=== PATIENT | female | born 1995 | race American Indian/Alaskan Native ===

== ENCOUNTER 2020-03-10 03:56 | Inpatient (IN) | payer MEDICAID ==
[2020-03-10] MEDS ORDERED: AMPICILLIN/NS 2 GM/100 ML 2 GM/100 ML BAG IV ONE (04:03)
[2020-03-10] MEDS ORDERED: fentaNYL 100 MCG/2 ML INJ IV PRN (04:03)
[2020-03-10] MEDS ORDERED: LIDOCAINE (2%) 20 MG/1 ML VIAL 20 ML MDV INFILTRATI ONE (04:03)
[2020-03-10] MEDS ORDERED: TERBUTALINE 1 MG/1 ML INJ SUB-Q PRN (04:03)
[2020-03-10] MEDS ORDERED: ePHEDrine SULFATE 50 MG/1 ML INJ IV PRN (04:03)
[2020-03-10] MEDS ORDERED: ACETAMINOPHEN 325 MG TAB PO PRN (04:03)
[2020-03-10] MEDS ORDERED: fentaNYL 100 MCG/2 ML INJ ONE (04:12)
--- NOTE | 2020-03-10 04:21 | History and Physical Report ---
History of Present Illness Date of examination: 03/10/20 Date of admission: 03/10/2020 Chief complaint: Contractions History of present illness: 24 year old presents with complaint of contractions. Patient reports possible leaking of fluid; denies vaginal bleeding. Patient reports active movement. Patient received care at [facility]. records are not available but was able to access some records via computer. LMP 06/09/19. EDC 03/02/2020. significant for the following: anemia (supplemented with iron), chl amydia (treated and cured), obesity/elevated hemoglobin A1C. labs are as follows: A+, antibody screen negative, rubella immune, hepatitis B surface antigen negative, RPR nonreactive, HIV negative, varicella immune, sickle cell negative, gonorrhea negative, chlamydia positive (JOSEPH negative), 1 hour sugar test 111, GBS positive, trichomonos negative. Past History Past Medical History: other (obesity) Past Surgical History: no surgical history [employer] History: chlamydia (treated and cured during ). denies: cancer, gonorrhea, hepatitis B, hepatitis C, herpes, HIV, syphilis, trichomonas Family/Genetic History: none Social history: lives with family, full code. denies: smoking, alcohol abuse, prescription drug abuse, IV drug use - Obstetrical History Expected Date of Delivery: 03/02/20 Actual Gestation: 41 Week(s) 1 Day(s) : 6 Para: 3 Hx # Term Pregnancies: 3 Number of Pregnancies: 0 Spontaneous Abortions: 0 Induced : 0 Number of Living Children: 3 Medications and Allergies Allergies Allergy/AdvReac Type Severity Reaction Status Date / Time No Known Allergies Allergy Verified 03/10/20 04:12 Home Medications Medication Instructions Recorded Confirmed Last Taken Type No Known Home Medications [No 03/10/20 03/10/20 Unknown History Reported Home Medications] Active Meds: Active Medications Acetaminophen (Tylenol) 650 mg PO Q4H PRN PRN Reason: Pain, Mild (1-3) Ephedrine Sulfate (Ephedrine Sulfate) 10 mg IV Q2M PRN PRN Reason: Hypotension Fentanyl (Sublimaze) 100 mcg IV Q2H PRN PRN Reason: Pain,Severe (7-10) LABOR PAIN Lactated Ringer's (Lactated Ringers) 1,000 mls @ 125 mls/hr IV DIRECT CHARLINE Oxytocin/Sodium Chloride (Pitocin/Ns 20 Unit/1000ml Drip) 20 units in 1,000 mls @ 125 mls/hr IV DIRECT CHARLINE Ampicillin Sodium (Ampicillin/Ns 2 Gm/100 Ml) 2 gm in 100 mls @ 100 mls/hr IV ONCE ONE; Protocol Stop: 03/10/20 05:02 Ampicillin Sodium (Ampicillin/Ns 1 Gm/50 Ml) 1 gm in 50 mls @ 100 mls/hr IV Q4HR CHARLINE; Protocol Terbutaline Sulfate (Brethine) 0.25 mg SUB-Q ONCE PRN PRN Reason: Hyperstimulation/Hypertonicity Review of Systems All systems: negative (contractions) - Vital Signs Vital signs: Vital Signs Pulse BP 92 H 153/99 03/10/20 04:09 03/10/20 04:09 Temp Pulse Resp BP Pulse Ox 92 H 153/99 03/10/20 04:09 03/10/20 04:09 - Physical Exam Abdomen: Positive: normal appearance, soft. Negative: distention, tenderness, guarding, rigidity Genitourinary (Female): Positive: normal perenium. Negative: perineal/vulvar lesions Uterus: Positive: enlarged. Negative: tender Anus/Rectum: Positive: normal perianal skin Extremities: Positive: normal. Negative: tenderness, edema - Obstetrical FHR: category 1 Uterine Contraction Monitor Mode: External Cervical Dilatation: 5 Cervical Effacement Percentage: 70 station: -3 Uterine Contraction Pattern: Regular Results Result Diagrams: 03/10/20 04:26 All other labs normal. Assessment and Plan A: at 41 weeks, 1 day gestation. Active labor. GBS positive. P: Admit. Epidural if desired. GBS prophylaxis. Anticipate vaginal .
[2020-03-10] MEDS ORDERED: OXYTOCIN 20 UNIT/1000ML DRIP 20 UNITS/1,000 ML BAG IV SCH (05:00)
[2020-03-10] MEDS ORDERED: LACTATED RINGERS 1,000 ML IV SCH (05:00)
[2020-03-10 05:20] LABS: Hematocrit 29.7 % (30.3-42.9); Hemoglobin 9.4 gm/dl (10.1-14.3); Mean Corpuscular HGB Conc 32 % (30-34); Platelet Count 311 K/mm3 (140-440); Red Blood Count 4.41 M/mm3 (3.65-5.03)
[2020-03-10 05:34] LABS: Mean Corpuscular Volume 67 fl (79-97); Red Cell Distribution Width 20.3 % (13.2-15.2)
[2020-03-10] MEDS ORDERED: LIDOCAINE MPF (2%) 20 MG/1 ML VIAL 5 ML ONE (05:44)
[2020-03-10] MEDS ORDERED: MINERAL OIL 30 ML ORAL LIQD ONE (05:44)
[2020-03-10] MEDS ORDERED: DEXMEDETOMIDINE 200 MCG/2 ML VIAL IV ONE (06:03)
--- NOTE | 2020-03-10 06:24 | Anesthesia Consultation ---
Anesthesia Consult and Med Hx Date of service: 03/10/20 - Airway Anesthetic Teeth Evaluation: Good ROM Head & Neck: Adequate Mental/Hyoid Distance: Adequate Mallampati Class: Class I - Pulmonary Exam CTA: Yes - Cardiac Exam Cardiac Exam: RRR - Pre-Operative Health Status ASA Pre-Surgery Classification: ASA2 Proposed Anesthetic Plan: Epidural - Pulmonary Hx Smoking: No Hx Asthma: No Hx Sleep Apnea: No - Cardiovascular System Hx Hypertension: No - Central Nervous System Hx Seizures: No Hx Psychiatric Problems: No - Gastrointestinal Hx Gastroesophageal Reflux Disease: No - Endocrine Hx Renal Disease: No Hx Hypothyroidism: No Hx Hyperthyroidism: No - Hematic Hx Anemia: No Hx Sickle Cell Disease: No - Other Systems Hx Alcohol Use: No
--- NOTE | 2020-03-10 06:25 | Progress Note ---
Labor Epidural - Labor Epidural Start Time: 06:05 Stop Time: 06:19 Performed by:: LATOYA BRENNAN Procedure: Patient is requesting a laboring epidural for laboring pain. Patient IDed, H&P reviewed, all questions and concerns were answered, and consent was signed. Timeout was performed at bedside. Patient in sitting position. Sterile prep and drape was performed. 3ml of 1% lidocaine skin wheal at L[3]- L [4]. 18- gauge Touhy epidural needle was advanced to loss of resistance with air technique. Negative CSF negative blood. Epidural catheter advanced to [13] centimeters. [-] Aspiration [-] test dose. Sterile dressing applied. Patient tolerated procedure.
--- NOTE | 2020-03-10 07:11 | Procedure Note ---
OB Delivery Note - Delivery Date of Delivery: 03/10/20 Surgeon: MICHAEL LOPEZ Estimated blood loss: other (250 cc) - Vaginal Delivery presentation: vertex Delivery position: OA Intrapartum events: none Delivery induction: none Delivery monitor: external FHT, external uterine Route of delivery: Delivery placenta: spontaneous Delivery cord: 3 umbilical vessels Episiotomy: none Delivery laceration: none Anesthesia: none Delivery comments: Spontaneous vaginal delivery at 06:35 of liveborn male over intact perineum with apgars of 8/9. Short cord. Baby vigorous at and was placed skin to skin with mom immediately after . Baby dried and bulb suctioned. 3 vessel cord double clamped and cut and baby taken to radiant warmer for further suctioning. Spontaneous delivery of intact placenta and membranes by sharpe mechanism. EBL 250 cc. Pitocin to IV fluids after delivery of placenta. Fundus firm and midline. No lacerations noted. Vaginal sweep negative. Sponge count correct. Mother and baby stable.
[2020-03-10] MEDS ORDERED: diphenhydrAMINE 25 MG CAP PO PRN (07:15)
[2020-03-10] MEDS ORDERED: WITCH HAZEL/ GLYCERIN PAD TP PRN (07:15)
[2020-03-10] MEDS ORDERED: HYDROcodone/ACETAMINOPHEN 5-325 MG TAB PO PRN (08:00)
[2020-03-10] MEDS ORDERED: LANOLIN/ZINC/DIMETHICONE (LANSINOH) 7 GM TP PRN (08:00)
[2020-03-10] MEDS ORDERED: AMPICILLIN/NS 1 GM/50 ML 1 GM/50 ML BAG IV SCH (08:15)
[2020-03-10] MEDS ORDERED: OXYTOCIN 10 UNIT/1 ML INJ IM ONE (08:30)
[2020-03-10] MEDS: IBUPROFEN 600 MG TAB PO SCH ×2 (12:57→19:39)
[2020-03-10 20:28] LABS: Hematocrit 24.9 % (30.3-42.9); Hemoglobin 8.1 gm/dl (10.1-14.3)
[2020-03-10] MEDS ORDERED: MAGNESIUM HYDROXIDE (MOM) ORAL LIQD UDC PO PRN (22:00)
[2020-03-11 00:59] LABS: Amphetamine Screen,Urine PRESUMPTIVE NEGATIVE; Benzodiazepines Screen,Urine PRESUMPTIVE NEGATIVE; Cannabinoid Screen,Urine PRESUMPTIVE NEGATIVE; Cocaine Screen,Urine PRESUMPTIVE NEGATIVE; Methadone Screen,Urine PRESUMPTIVE NEGATIVE; Opiate Screen,Urine PRESUMPTIVE NEGATIVE
[2020-03-11] MEDS: IBUPROFEN 600 MG TAB PO SCH ×3 (02:52→21:44)
[2020-03-11] MEDS: FERROUS SULFATE 325 MG TAB PO SCH ×2 (10:30→21:43)
--- NOTE | 2020-03-11 10:51 | Discharge Summary ---
Providers - Providers Date of Admission: 03/10/20 04:04 Date of discharge: 03/11/20 (1300) Attending physician: PAWAN STREET JR, MD Primary care physician: PAWAN STREET JR, MD Hospitalization Reason for admission: active labor Delivery: Episiotomy: none Laceration: none Other procedures: none complications: none Discharge diagnosis: IUP at term delivered, other (anemia, asymptomatic) [place] baby: male Hospital course: See admission H & P; OB delivery summary and PP progress notes Condition at discharge: Good Disposition: DC-01 TO HOME OR SELFCARE - Discharge Diagnoses (1) Status post normal vaginal delivery Status: Acute (2) Anemia Status: Acute Qualifiers: Anemia type: iron deficiency Plan - Provider Discharge Summary Activity: routine, no sex for 6 weeks, no heavy lifting 4 weeks, no strenuous exercise Diet: other (Iron rich foods) Instructions: routine Additional instructions: [] Smoking cessation referral if applicable(refer to patient education folder for contact #) [] Refer to [facility]'s [facility] Booklet Call your doctor immediately for: * Fever > 100.5 * Heavy vaginal bleeding ( >1 pad per hour) * Severe persistent headache * Shortness of breath * Reddened, hot, painful area to leg or breast * Continue daily oral iron supplementation with OJ as directed - Follow up plan Follow up: PAWAN STREET JR, MD [Primary Care Provider] - 6 Weeks
[2020-03-12] MEDS: IBUPROFEN 600 MG TAB PO SCH ×2 (06:11→13:57)
[2020-03-12 07:50] VITALS: BP 114/56
== END 2020-03-12 15:00 | disposition home or self-care (01) | DRG 775 ==
LOC: TRG 03:56 → APU 03:57 → TRG 04:04 → LD 04:04 → OB 11:00
PROVIDERS: ADMIT Obstetrics & Gynecology; ATTEND Obstetrics & Gynecology
PROC: 10E0XZZ Delivery of Products of Conception, External Approach (ICD-10-PCS; principal; 2020-03-10)
PROC: 3E0R3BZ Introduction of Anesthetic Agent into Spinal Canal, Percutaneous Approach (ICD-10-PCS; 2020-03-10)
PROC: 00HU33Z Insertion of Infusion Device into Spinal Canal, Percutaneous Approach (ICD-10-PCS; 2020-03-10)
DX: O99.824 Streptococcus B carrier state complicating childbirth (principal); Z37.0 Single live birth; Z3A.41 41 weeks gestation of pregnancy; D50.9 Iron deficiency anemia, unspecified; O99.02 Anemia complicating childbirth; O99.214 Obesity complicating childbirth; E66.9 Obesity, unspecified
CPT/HCPCS: 36415; 59025; 80307; 85014; 85018; 85027; 86850; 86900; 86901; 96360; 96374; G0378; J0290; J2590; J3010; J3490; J7120